=== PATIENT | male | born 1965 | race Caucasian/White ===

== ENCOUNTER 2020-09-23 15:06 | Emergency (ER) | payer BC ==
[~2020-09-23] VITALS: Ht 177.8 cm; Wt 98.6 kg
[~2020-09-23 15:06] MED LIST: CELE200C PO; ETAN50DI2 SC
--- NOTE | 2020-09-23 16:00 | NUR ---
PT RETURNED FROM XRAY. UPRIGHT ON GURSEATTLE ON CELL PHONE, NAD, VSS. PT DENIES ANY NEEDS AT THIS TIME. CALL LIGHT IN REACH. WILL CONTINUE TO MONITOR.
--- NOTE | 2020-09-23 16:25 | NUR ---
ERP AT BEDSIDE
--- NOTE | 2020-09-23 16:38 | NUR ---
Patient given discharge instructions and they have confirmed that they understand the instructions. Patient ambulatory with steady gait.
[2020-09-23 16:39] VITALS: BP 130/89
== END 2020-09-23 16:43 | disposition home or self-care (01) ==
LOC: ED 16:12
DX: S20.219A Contusion of unspecified front wall of thorax, initial encounter (principal); R07.89 Other chest pain; R05 Cough; X58.XXXA Exposure to other specified factors, initial encounter; Y93.89 Activity, other specified; Y92.89 Other specified places as the place of occurrence of the external cause; Y99.8 Other external cause status
CPT/HCPCS: 71046; 99283